=== PATIENT | female | born 1955 | race African-American/Black ===

== ENCOUNTER 2023-02-11 12:42 | Emergency (ER) | payer MEDICARE, SELFPAY ==
[2023-02-11 12:45] VITALS: BP 155/80; PULSE 96; RESP 18; TEMP 37.1; O2SAT 97; BMI 42.5
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
[2023-02-11] MEDS: traMADol 50 MG Tablet 100 MG PO (13:44)
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
[2023-02-11 14:58] VITALS: BP 124/77; PULSE 82; RESP 16; O2SAT 97
== END 2023-02-11 14:58 | disposition home or self-care (01) ==
PROVIDERS: Emergency Provider Emergency Medicine; Visit Provider Emergency Medicine
DX: S20.20XA Contusion of thorax, unspecified, initial encounter (principal); E11.9 Type 2 diabetes mellitus without complications; I10 Essential (primary) hypertension; S63.501A Unspecified sprain of right wrist, initial encounter; V56.5XXA Driver of pick-up truck or van injured in collision with other nonmotor vehicle in traffic accident, initial encounter
CPT/HCPCS: 71046; 73060; 73110; 99284